=== PATIENT | female | born 1975 | race Caucasian/White ===

== ENCOUNTER 2018-10-25 08:55 | Inpatient (IN) | payer OTHER, MEDICAID ==
[~2018-10-25] VITALS: Ht 160 cm; Wt 85.7 kg
[2018-10-25 10:12] LABS: CALCIUM 8.4 mg/dL (8.5-10.1); CARBON DIOXIDE 27.7 mmol/L (21-32); CHLORIDE SERUM 101 mmol/L (98-107); CREATININE SERUM 0.7 mg/dL (0.6-1.0); GFR1 > 60 mL/min; GLUCOSE SERUM 73 mg/dL (74-106); POTASSIUM SERUM 4.1 mmol/L (3.5-5.1); SODIUM SERUM 134 mmol/L (136-145)
[2018-10-25 10:16] LABS: ALKALINE PHOSPHATASE 119 U/L (46-116); ALT/SGPT 23 U/L (14-59); AST/SGOT 18 U/L (15-37); BILIRUBIN TOTAL 0.2 mg/dL (0.20-1.00); MAGNESIUM 2.3 mg/dL (1.8-2.4); TOTAL PROTEIN, SERUM 6.9 g/dL (6.4-8.2)
[2018-10-25 10:19] LABS: ALBUMIN 3.1 g/dL (3.4-5.0); CHOLESTEROL 203 mg/dL (<200); HDL CHOLESTEROL 87 mg/dL (40-60)
[2018-10-25] MEDS ORDERED: PHARMASSURE FO0.4 MG PO (11:17)
[2018-10-25] MEDS ORDERED: CARAFATE1 GM/10 ML PO (11:17)
[2018-10-25] MEDS ORDERED: GOOD SENSE OMEP20 MG PO (11:18)
[2018-10-25] MEDS ORDERED: RITALIN5 MG PO (11:18)
[2018-10-25] MEDS ORDERED: PROZAC40 MG PO (11:18)
[2018-10-25] MEDS ORDERED: LYRICA75 M1 PO (11:18)
[2018-10-25] MEDS ORDERED: SEROQUEL25 MG PO (11:18)
[2018-10-25 12:32] LABS: BASOPHIL % 0.4 % (0-2); PLATELET COUNT 319 x10^3mcL (130-400); RED CELL DISTRIBUTION WIDTH 14.1 % (11.5-14.5)
[2018-10-25 12:56] LABS: microscopic required? YES; urine erythrocyte NEGATIVE (NEGATIVE)
[2018-10-25 13:03] LABS: AMPHETAMINE QUAL UR NONE DETECTED (See below)
[2018-10-25 13:52] LABS: PHOSPHOROUS 4.9 mg/dL (2.5-4.9)
[2018-10-25 13:58] VITALS: BP 123/88
[2018-10-25 14:06] LABS: FREE T4 1.24 ng/dL (0.76-1.46); FREE THYROXINE INDEX 3.8 ug/dL (1.4-4.5); T4(THYROXINE) 11.5 ug/dL (4.7-13.3)
[2018-10-25] MEDS ORDERED: NOR10T PO (14:12)
[2018-10-25 17:41] VITALS: BP 119/78
[2018-10-25 20:50] VITALS: BP 124/79
[2018-10-26 00:16] LABS: T3 TOTAL 1.46 ng/mL
[2018-10-26 06:01] VITALS: BP 101/61
[2018-10-26 06:48] LABS: BASOPHIL % 0.7 % (0-2); PLATELET COUNT 292 x10^3mcL (130-400); RED CELL DISTRIBUTION WIDTH 13.3 % (11.5-14.5)
[2018-10-26 07:14] LABS: CALCIUM 7.9 mg/dL (8.5-10.1); CARBON DIOXIDE 26.5 mmol/L (21-32); CHLORIDE SERUM 104 mmol/L (98-107); CREATININE SERUM 0.6 mg/dL (0.6-1.0); GFR1 > 60 mL/min; GLUCOSE SERUM 81 mg/dL (74-106); POTASSIUM SERUM 3.5 mmol/L (3.5-5.1); SODIUM SERUM 136 mmol/L (136-145)
[2018-10-26 09:06] VITALS: BP 105/61
[2018-10-26] MEDS ORDERED: MIRALAX17 GM/Dose PO (11:30)
[2018-10-26] MEDS ORDERED: DEX4 GLUCOSE15 GM PO (11:30)
[2018-10-26 11:42] VITALS: BP 105/61
== END 2018-10-26 13:44 | disposition home or self-care (01) | DRG 392 ==
LOC: ED 08:55 → MU 12:09
PROVIDERS: Emergency Medicine; ADMIT General Practice
DX: K91.2 Postsurgical malabsorption, not elsewhere classified (principal); E44.0 Moderate protein-calorie malnutrition; E87.1 Hypo-osmolality and hyponatremia; K56.7 Ileus, unspecified; E16.2 Hypoglycemia, unspecified; G43.909 Migraine, unspecified, not intractable, without status migrainosus; F43.10 Post-traumatic stress disorder, unspecified; M54.9 Dorsalgia, unspecified; G89.29 Other chronic pain; E78.5 Hyperlipidemia, unspecified; E03.9 Hypothyroidism, unspecified; E83.51 Hypocalcemia; Z79.899 Other long term (current) drug therapy; Z60.2 Problems related to living alone; Z98.84 Bariatric surgery status; Y83.2 Surgical operation with anastomosis, bypass or graft as the cause of abnormal reaction of the patient, or of later complication, without mention of misadventure at the time of the procedure; Y92.009 Unspecified place in unspecified non-institutional (private) residence as the place of occurrence of the external cause
CPT/HCPCS: 82962; 84439; J1885; J2405; J3490; Q0092

== ENCOUNTER 2019-04-05 09:34 | Emergency (ER) | payer OTHER, MEDICAID ==
[~2019-04-05] VITALS: Ht 157.5 cm; Wt 94.5 kg
[~2019-04-05 09:34] MED LIST: CARAFATE1 GM/10 ML PO; DEX4 GLUCOSE15 GM PO; GOOD SENSE OMEP20 MG PO; LYRICA75 M1 PO; MIRALAX17 GM/Dose PO; NOR10T PO; PHARMASSURE FO0.4 MG PO; PROZAC40 MG PO; RITALIN5 MG PO; SEROQUEL25 MG PO
[2019-04-05 09:41] VITALS: Ht 157.5 cm; Wt 94.5 kg
[2019-04-05 12:03] VITALS: BP 119/70
== END 2019-04-05 12:03 | disposition home or self-care (01) ==
LOC: ED 09:34
DX: G89.29 Other chronic pain (principal); M54.9 Dorsalgia, unspecified; G43.911 Migraine, unspecified, intractable, with status migrainosus; Z98.890 Other specified postprocedural states

== ENCOUNTER 2019-04-09 08:45 | Emergency (ER) | payer OTHER, MEDICAID ==
[~2019-04-09] VITALS: Ht 160 cm; Wt 93.9 kg
[2019-04-09 08:47] VITALS: Ht 160 cm; Wt 93.9 kg
[2019-04-09 09:57] VITALS: BP 106/69
== END 2019-04-09 10:09 | disposition home or self-care (01) ==
LOC: ED 08:45
DX: M54.5 Low back pain (principal); G43.909 Migraine, unspecified, not intractable, without status migrainosus; Z98.84 Bariatric surgery status

== ENCOUNTER 2019-08-27 23:52 | Emergency (ER) | payer OTHER, MEDICAID ==
[~2019-08-27] VITALS: Ht 160 cm; Wt 92.5 kg
[2019-08-28 01:08] LABS: RED CELL DISTRIBUTION WIDTH 13.5 % (11.5-14.5)
[2019-08-28 01:09] LABS: BASOPHIL % 0.7 % (0-2); PLATELET COUNT 368 x10^3mcL (130-400)
[2019-08-28 01:19] LABS: CARBON DIOXIDE 30.4 mmol/L (21-32); CHLORIDE SERUM 102 mmol/L (98-107); CREATININE SERUM 0.7 mg/dL (0.6-1.0); GFR1 > 60 mL/min; GLUCOSE SERUM 100 mg/dL (74-106); POTASSIUM SERUM 4.4 mmol/L (3.5-5.1); SODIUM SERUM 140 mmol/L (136-145); TOTAL PROTEIN, SERUM 7.4 g/dL (6.4-8.2)
[2019-08-28 01:20] LABS: ALBUMIN 3.1 g/dL (3.4-5.0); ALKALINE PHOSPHATASE 144 U/L (46-116); ALT/SGPT 17 U/L (14-59); AMYLASE 37 U/L (25-115); AST/SGOT 14 U/L (15-37); BILIRUBIN TOTAL 0.14 mg/dL (0.20-1.00); CALCIUM 8.7 mg/dL (8.5-10.1); LIPASE 115 IU/L (73-393)
[2019-08-28 04:00] VITALS: BP 134/70
== END 2019-08-28 04:00 | disposition home or self-care (01) ==
LOC: ED 23:52
PROVIDERS: Emergency Medicine
DX: K59.00 Constipation, unspecified (principal); Z98.84 Bariatric surgery status; Z98.890 Other specified postprocedural states
CPT/HCPCS: 82962; J1885; J2270; J2405; J3010

== ENCOUNTER 2020-05-24 13:15 | Emergency (ER) | payer MEDICAID ==
[~2020-05-24] VITALS: Ht 160 cm; Wt 92.5 kg
[2020-05-24 13:47] VITALS: Ht 160 cm; Wt 92.5 kg
[2020-05-24 16:39] VITALS: BP 118/77
== END 2020-05-24 16:39 | disposition home or self-care (01) ==
LOC: ED 13:15
DX: M54.5 Low back pain (principal); G89.29 Other chronic pain; G43.909 Migraine, unspecified, not intractable, without status migrainosus; Z98.890 Other specified postprocedural states; W01.0XXA Fall on same level from slipping, tripping and stumbling without subsequent striking against object, initial encounter; Y93.89 Activity, other specified; Y92.89 Other specified places as the place of occurrence of the external cause; Y99.8 Other external cause status
CPT/HCPCS: J3010

== ENCOUNTER 2020-06-15 12:07 | Emergency (ER) | payer MEDICAID ==
[~2020-06-15] VITALS: Ht 160 cm; Wt 96.2 kg
[2020-06-15 12:21] VITALS: Ht 160 cm; Wt 96.2 kg
[2020-06-15 15:25] LABS: BASOPHIL % 0.5 % (0-2); PLATELET COUNT 367 x10^3mcL (130-400)
[2020-06-15 15:27] LABS: CALCIUM 8.6 mg/dL (8.5-10.1); CHLORIDE SERUM 104 mmol/L (98-107); CREATININE SERUM 0.7 mg/dL (0.6-1.0); GFR1 > 60 mL/min; GLUCOSE SERUM 78 mg/dL (74-106); POTASSIUM SERUM 4.5 mmol/L (3.5-5.1); RED CELL DISTRIBUTION WIDTH 15.4 % (11.5-14.5); SODIUM SERUM 139 mmol/L (136-145)
[2020-06-15 15:32] LABS: ALBUMIN 3.1 g/dL (3.4-5.0); ALKALINE PHOSPHATASE 137 U/L (46-116); ALT/SGPT 17 U/L (14-59); AST/SGOT 15 U/L (15-37); BILIRUBIN TOTAL 0.15 mg/dL (0.20-1.00); TOTAL PROTEIN, SERUM 7.1 g/dL (6.4-8.2)
[2020-06-15 16:46] LABS: AMPHETAMINE QUAL UR NONE DETECTED (See below)
[2020-06-15 17:51] VITALS: BP 149/94
== END 2020-06-15 17:48 | disposition home or self-care (01) ==
LOC: ED 12:07
PROVIDERS: Emergency Medicine
DX: S06.0X9A Concussion with loss of consciousness of unspecified duration, initial encounter (principal); S13.4XXA Sprain of ligaments of cervical spine, initial encounter; G43.909 Migraine, unspecified, not intractable, without status migrainosus; Z98.890 Other specified postprocedural states; W22.8XXA Striking against or struck by other objects, initial encounter; Y93.89 Activity, other specified; Y92.89 Other specified places as the place of occurrence of the external cause; Y99.8 Other external cause status
CPT/HCPCS: J1885; J2405